=== PATIENT | male | born 1995 ===

== ENCOUNTER 2017-09-05 17:44 | Emergency (ER) | payer OTHER ==
--- NOTE | 2017-09-05 17:58 | UC ---
UC General HPI - HPI Summary HPI Summary: 21 year old male presents for a refill on his Pristiq 50 mg . He has an appointment with his counselor 09/19/17 and has been on the medication for 2 years with no side effects. - History of Current Complaint Stated Complaint: MED REFILL Time Seen by Provider: 09/05/17 17:58 Hx Obtained From: Patient Onset/Duration: Sudden Onset Onset Severity: Moderate Current Severity: Moderate - Allergy/Home Medications Allergies/Adverse Reactions: Allergies Allergy/AdvReac Type Severity Reaction Status Date / Time No Known Allergies Allergy Verified 09/05/17 18:04 Home Medications: Home Medications Desvenlafaxine Succinate [Pristiq] 50 mg PO DAILY 09/05/17 [History Confirmed ] buPROPion TAB* [Wellbutrin TAB*] 150 mg PO DAILY 09/05/17 [History Confirmed ] PMH/Surg Hx/FS Hx/Imm Hx Previously Healthy: Yes Review of Systems Constitutional: Negative Skin: Negative Eyes: Negative ENT: Negative Respiratory: Negative Cardiovascular: Negative Gastrointestinal: Negative Genitourinary: Negative Motor: Negative Neurovascular: Negative Musculoskeletal: Negative Neurological: Negative Psychological: Depressed Is Patient Immunocompromised?: Yes All Other Systems Reviewed And Are Negative: Yes Physical Exam Triage Information Reviewed: Yes Eye Exam: Normal ENT Exam: Normal Dental Exam: Normal Neck exam: Normal Neck: Positive: 1 Respiratory Exam: Normal Cardiovascular Exam: Normal Abdominal Exam: Normal Musculoskeletal Exam: Normal Neurological Exam: Normal Psychological Exam: Normal Skin Exam: Normal Course/Dx - Differential Dx - Multi-Symptom Provider Diagnoses: medication refill. depression Discharge - Discharge Plan Condition: Stable Disposition: HOME Prescriptions: Desvenlafaxine Succinate [Pristiq] 50 mg PO DAILY #30 tab Patient Education Materials: Depressive Disorder in Adolescents (ED) Referrals: No Primary Care Phys,NOPCP [Medical Doctor] -
== END 2017-09-05 18:23 | disposition home or self-care (01) ==
LOC: UCEAST 17:44
DX: Z76.0 Encounter for issue of repeat prescription (principal); F32.9 Major depressive disorder, single episode, unspecified
CPT/HCPCS: 99202; G0463